=== PATIENT | female | born 1985 | race Caucasian/White ===

== ENCOUNTER 2016-05-16 20:30 | Emergency (ER) | payer BC, OTHER ==
[~2016-05-16] VITALS: Ht 160 cm; Wt 106.1 kg
[~2016-05-16 20:30] MED LIST: NOHOMEMEDICATIONS; ULTRAM 50MG TAB50 MG PO
[2016-05-16] MEDS ORDERED: FLEXERIL PO (20:45)
[2016-05-16] MEDS ORDERED: ADDERALL 5 MG TA5 MG PO (20:45)
[2016-05-16] MEDS ORDERED: VITAMIN D2000 UNIT PO (20:46)
[2016-05-16] MEDS ORDERED: VITAMIN D 5050000 I1 PO (20:46)
[2016-05-16] MEDS ORDERED: IMURAN 50MG TAB50 M1 PO (20:46)
[2016-05-16] MEDS ORDERED: ZOFRAN ODT4 MG PO (21:46)
[2016-05-16] MEDS ORDERED: CLEOCIN HCL150 MG PO (21:46)
[2016-05-16 22:04] VITALS: BP 119/63
== END 2016-05-16 22:05 | disposition home or self-care (01) ==
LOC: ER 20:30
DX: J02.0 Streptococcal pharyngitis (principal); M35.2 Behcet's disease; J45.909 Unspecified asthma, uncomplicated; E27.40 Unspecified adrenocortical insufficiency; Z88.1 Allergy status to other antibiotic agents; Z88.5 Allergy status to narcotic agent; Z91.041 Radiographic dye allergy status; Z88.2 Allergy status to sulfonamides